=== PATIENT | male | born 1980 | race Hispanic/Latino ===

== ENCOUNTER → 2019-04-09 16:13 | Outpatient (CLI) | payer OTHER, SELFPAY ==
[2019-04-09 16:49] LABS: Hemoglobin A1C% w Est Avg Glu 13.5 % (4.0-6.0)
[2019-04-09 17:22] LABS: Creatinine Urine Random 61.3 mg/dL
[2019-04-09 17:26] LABS: Alanine Aminotransferase 53 IU/L (<50); Albumin 4.2 g/dL (3.5-5.0); Albumin Globulin Ratio 1.4 (1.0-2.8); Alkaline Phosphatase 120 U/L (38-126); Aspartate Aminotransferase 55 IU/L (17-59); BUN Creatinine Ratio 17.3 (6-22); Bilirubin Total 0.8 mg/dL (0.2-1.3); Blood Urea Nitrogen 19 mg/dL (9-20); Calcium 9.5 mg/dL (8.4-10.2); Carbon Dioxide 27 mmol/L (22-32); Chloride 97 mmol/L (98-107); Cholesterol 206 mg/dL (140-199); Estimated Glomerular Filt Rate > 60.0 mL/min (>60); Globulin 3.1 g/dL (1.7-4.1); Glucose 346 mg/dL (70-100); HDL Cholesterol 25 mg/dL (40-60); Potassium 3.9 mmol/L (3.4-5.1); Sodium 136 mmol/L (137-145); Total Protein 7.3 g/dL (6.3-8.2)
[2019-04-09 17:29] LABS: Microalbumi Creatinin Ratio Ur 9.7 ug/mg CR (<30); Microalbumin Urine Random < 0.6 mg/dL (0-1.6)
[2019-04-09 17:42] LABS: HEMOLYSIS 57 (0-50); Triglycerides 2395 mg/dL (35-150)
[2019-04-09 17:58] LABS: Vitamin D 25 Hydroxy (D3) 17.4 ng/mL (30.0-100.0)
== END ==
PROVIDERS: Family Provider Family Medicine; PCP Student in an Organized Health Care Education/Training Program; Visit Provider Student in an Organized Health Care Education/Training Program
DX: E11.9 Type 2 diabetes mellitus without complications (principal); E78.1 Pure hyperglyceridemia; E78.2 Mixed hyperlipidemia; I10 Essential (primary) hypertension; Z79.4 Long term (current) use of insulin
CPT/HCPCS: 36415; 80053; 80061; 82043; 82306; 82570; 83036

== ENCOUNTER → 2019-07-09 11:19 | Outpatient (CLI) | payer OTHER, SELFPAY ==
[2019-07-09 12:31] LABS: Hemoglobin A1C% w Est Avg Glu 8.1 % (4.0-6.0)
[2019-07-09 12:48] LABS: Cholesterol 104 mg/dL (140-199); HDL Cholesterol 34 mg/dL (40-60); LDL Cholesterol Calculated 46 mg/dL (<100); Triglycerides 121 mg/dL (35-150)
[2019-07-09 13:05] LABS: Vitamin D 25 Hydroxy (D3) 35.3 ng/mL (30.0-100.0)
[2019-07-11 14:27] LABS: Calcium 8.8 mg/dL (8.6-10.3); Parathyroid Hormone, Intact 20 pg/mL (14-64)
== END ==
PROVIDERS: Family Provider Family Medicine; PCP Student in an Organized Health Care Education/Training Program; Referring Provider Student in an Organized Health Care Education/Training Program; Visit Provider Student in an Organized Health Care Education/Training Program
DX: E11.9 Type 2 diabetes mellitus without complications (principal); E55.9 Vitamin D deficiency, unspecified; E78.1 Pure hyperglyceridemia; I10 Essential (primary) hypertension; Z79.4 Long term (current) use of insulin
CPT/HCPCS: 36415; 80061; 82306; 82310; 83036; 83970

== ENCOUNTER → 2020-03-02 11:51 | Outpatient (CLI) | payer OTHER, SELFPAY ==
[2020-03-02 12:55] LABS: Hemoglobin A1C% w Est Avg Glu 13.1 % (4.0-6.0)
[2020-03-02 13:44] LABS: Cholesterol 144 mg/dL (140-199); HDL Cholesterol 29 mg/dL (40-60)
[2020-03-02 13:53] LABS: Triglycerides 596 mg/dL (35-150)
[2020-03-02 15:22] LABS: Creatinine Urine Random 69.8 mg/dL
[2020-03-02 15:25] LABS: Microalbumin Urine Random 0.7 mg/dL (0-1.6)
== END ==
PROVIDERS: Family Provider Family Medicine; PCP Student in an Organized Health Care Education/Training Program; Referring Provider Student in an Organized Health Care Education/Training Program; Visit Provider Student in an Organized Health Care Education/Training Program
DX: E11.9 Type 2 diabetes mellitus without complications (principal); E78.1 Pure hyperglyceridemia; I10 Essential (primary) hypertension; Z79.4 Long term (current) use of insulin
CPT/HCPCS: 36415; 80061; 82043; 82570; 83036

== ENCOUNTER → 2020-06-19 15:41 | Outpatient (CLI) | payer OTHER, SELFPAY ==
[2020-06-19 16:48] LABS: Hemoglobin A1C% w Est Avg Glu 11.7 % (4.0-6.0)
== END ==
PROVIDERS: Family Provider Family Medicine; PCP Student in an Organized Health Care Education/Training Program; Referring Provider Student in an Organized Health Care Education/Training Program; Visit Provider Student in an Organized Health Care Education/Training Program
DX: E11.9 Type 2 diabetes mellitus without complications (principal); Z79.4 Long term (current) use of insulin
CPT/HCPCS: 36415; 83036

== ENCOUNTER → 2020-09-29 18:19 | Outpatient (CLI) | payer OTHER, SELFPAY ==
[2020-09-29 20:39] LABS: Influenza A - CEPHEID Flu A NEGATIVE (NEGATIVE); Influenza B - CEPHEID Flu B NEGATIVE (NEGATIVE)
== END ==
PROVIDERS: Family Provider Family Medicine; PCP Student in an Organized Health Care Education/Training Program; Visit Provider Physician Assistant
DX: R50.9 Fever, unspecified (principal)
CPT/HCPCS: 87502

== ENCOUNTER → 2020-09-29 18:32 | Outpatient (CLI) | payer OTHER, SELFPAY ==
--- NOTE | 2020-09-29 18:35 | DI.RAD.S_ITS ---
PROCEDURE: XR CHEST 2V INDICATIONS: wheezing TECHNIQUE: 2 views of the chest were acquired. COMPARISON: None. FINDINGS: Surgical changes and devices: None. Lungs and pleura: No pleural effusions or pneumothorax. Left mid lung/upper lobe focal consolidative opacity Mediastinum: Mediastinal contours are normal. Heart size is normal. Bones and chest wall: No suspicious bony abnormalities. Soft tissues appear unremarkable. IMPRESSION: Left upper lobe pneumonia. Dictated by: Daniel Long M.D. on 09/29/2020 at 18:47 Approved by: Daniel Long M.D. on 09/29/2020 at 18:48
== END ==
PROVIDERS: Family Provider Family Medicine; PCP Student in an Organized Health Care Education/Training Program; Referring Provider Physician Assistant; Visit Provider Physician Assistant
DX: J18.9 Pneumonia, unspecified organism (principal); R06.2 Wheezing; R50.9 Fever, unspecified
CPT/HCPCS: 71046; 87502

== ENCOUNTER → 2021-04-26 16:41 | Outpatient (CLI) | payer OTHER, SELFPAY ==
[2021-04-26 17:50] LABS: Hemoglobin A1C% w Est Avg Glu 10.9 % (4.0-6.0)
[2021-04-26 18:00] LABS: BUN Creatinine Ratio 17.8 (6-22); Blood Urea Nitrogen 18 mg/dL (9-20); Calcium 9.5 mg/dL (8.4-10.2); Carbon Dioxide 27 mmol/L (22-32); Chloride 95 mmol/L (98-107); Estimated Glomerular Filt Rate > 60.0 mL/min (>60); Glucose 420 mg/dL (70-100); HEMOLYSIS < 15 (0-50); Potassium 3.9 mmol/L (3.4-5.1); Sodium 134 mmol/L (137-145)
[2021-04-26 19:06] LABS: Creatinine Urine Random 46.8 mg/dL
[2021-04-26 19:15] LABS: Microalbumin Urine Random < 0.6 mg/dL (0-1.6)
== END ==
PROVIDERS: Family Provider Family Medicine; PCP Student in an Organized Health Care Education/Training Program; Referring Provider Student in an Organized Health Care Education/Training Program; Visit Provider Student in an Organized Health Care Education/Training Program
DX: E11.9 Type 2 diabetes mellitus without complications (principal); E78.1 Pure hyperglyceridemia; E78.2 Mixed hyperlipidemia; Z79.4 Long term (current) use of insulin
CPT/HCPCS: 36415; 80048; 82043; 82570; 83036

== ENCOUNTER → 2021-11-09 15:36 | Outpatient (CLI) | payer OTHER, SELFPAY ==
[2021-11-09 16:41] LABS: Alanine Aminotransferase 37 IU/L (<50); Albumin Globulin Ratio 1.5 (1.0-2.8); Alkaline Phosphatase 101 U/L (38-126); Aspartate Aminotransferase 34 IU/L (17-59); BUN Creatinine Ratio 19.6 (6-22); Bilirubin Total 0.6 mg/dL (0.2-1.3); Blood Urea Nitrogen 20 mg/dL (9-20); Calcium 9.9 mg/dL (8.4-10.2); Carbon Dioxide 28 mmol/L (22-32); Chloride 99 mmol/L (98-107); Estimated Glomerular Filt Rate > 60 mL/min (>60); Globulin 3.4 g/dL (1.7-4.1); Glucose 245 mg/dL (70-100); HEMOLYSIS < 15 (0-50); Potassium 3.4 mmol/L (3.4-5.1); Sodium 138 mmol/L (137-145); Total Protein 8.4 g/dL (6.3-8.2)
[2021-11-10 05:57] LABS: Fructosamine 435 umol/L (0-285)
== END ==
PROVIDERS: Family Provider Family Medicine; PCP Student in an Organized Health Care Education/Training Program; Referring Provider Student in an Organized Health Care Education/Training Program; Visit Provider Student in an Organized Health Care Education/Training Program
DX: E11.9 Type 2 diabetes mellitus without complications (principal); K76.0 Fatty (change of) liver, not elsewhere classified; Z79.4 Long term (current) use of insulin
CPT/HCPCS: 36415; 80053; 82985

== ENCOUNTER → 2022-06-14 11:27 | Outpatient (CLI) | payer OTHER, SELFPAY ==
[2022-06-14 12:18] LABS: Hemoglobin A1C% w Est Avg Glu 11.2 % (4.0-6.0)
[2022-06-14 12:34] LABS: Cholesterol 154 mg/dL (140-199); HDL Cholesterol 30 mg/dL (40-60); Triglycerides 480 mg/dL (35-150)
[2022-06-14 15:07] LABS: Creatinine Urine Random 107.9 mg/dL
[2022-06-14 15:13] LABS: Microalbumi Creatinin Ratio Ur 26.8 ug/mg CR (<30); Microalbumin Urine Random 2.9 mg/dL (0-1.6)
== END ==
PROVIDERS: Family Provider Family Medicine; PCP Student in an Organized Health Care Education/Training Program; Referring Provider Student in an Organized Health Care Education/Training Program; Visit Provider Student in an Organized Health Care Education/Training Program
DX: E11.9 Type 2 diabetes mellitus without complications (principal); Z79.4 Long term (current) use of insulin; E78.1 Pure hyperglyceridemia; E78.2 Mixed hyperlipidemia
CPT/HCPCS: 36415; 80061; 82043; 82570; 83036

== ENCOUNTER → 2022-09-27 11:12 | Outpatient (CLI) | payer OTHER, SELFPAY ==
[2022-09-28 07:36] LABS: x Labcorp Estim. Avg Glu (eAG) 280 mg/dL (.); x Labcorp Hemoglobin A1c 11.4 % (4.8-5.6)
== END ==
PROVIDERS: Family Provider Student in an Organized Health Care Education/Training Program; PCP Student in an Organized Health Care Education/Training Program; Referring Provider Student in an Organized Health Care Education/Training Program; Visit Provider Student in an Organized Health Care Education/Training Program
DX: E11.9 Type 2 diabetes mellitus without complications (principal); Z79.4 Long term (current) use of insulin
CPT/HCPCS: 36415; 83036

== ENCOUNTER → 2022-10-11 15:13 | Outpatient (CLI) | payer OTHER, SELFPAY ==
--- NOTE | 2022-10-11 17:24 | DIAB.INIT ---
Initial Diabetes Education Assessment Name: Terrence Bee Date: 10/11/22 Time: 330-5p Dx: Type II Diabetes Provider: Charlotte Terrence presents today for initial diabetes ed visit. Endorses PMH of DM for about 15 years. FH of DM with father and sister. Reports more difficulty managing Dm in the cooler months due to less activity with work. Recently changed from 70/30 insulin to basal bolus, however he never started bolus. As a result BG have been very high. We called his pharmacy today, they state his insurance will not cover Novolog. RD/CDCES messaged provider about switching rx to Humalog for better coverage. Terrence has 70/30 left over and plans to restart this regimen until his bolus rx can be figured out. States food is a problem, however diet recall indicates mostly low to moderate carb intake for most meals. Seems very conscious of carb portions. Has questions regarding insulin action and storage. Denies any symptoms with excessive high BG. Endorses shaky/cold symptoms with BG <50mg/dl. Hypoglycemia unawareness between 50-70mg/dl. Recently started Freestyle Marcie. Interested in smaller version, FSL3. Physical Activity: States he use to use a treadmill, but the main barrier is finding a time when his children are not sleeping. Family is reported main concern for increasing PA. needs help at home with kids after work. Work is active when working outside per report. Self-Monitoring Blood Glucose: Since switching off 70/30 insulin Terrence reports consistent elevations; however this is mostly r/t not fully understanding that he needed to add bolus to NPH BID. Not swiping 3x per day, which results in discrepancies in reports. Reports h/o severe lows in the night, <50 mg/dl and treating with yogurt. States he has noticed difference in cost of FSL lately. Called insurance without much help. Will provide FSL number for more info. 14 day Time in Range 79% very high >250mg/dl 17% high 181-250mg/dl 4% in range 0% low Diabetes Medications: NPH 30u BID Aspart 10u BID (not taking) Pertinent Labs: HgA1c: 11.4% 09/2022 11.2 06/2022 Past Medical History: (Last Reviewed 08/04/22 @ 11:59 by GAIL Finney) Allergic rhinitis Bronchitis Essential hypertension (07/10/15) Herpes simplex infection of penis (07/10/15) Hyperlipidemia associated with type 2 diabetes mellitus Type 2 diabetes mellitus without complication, with long-term current use of insulin (09/18/17) Intervention: This participant was very receptive. Provided appropriate educational handouts. Discussed the following topics: Completed intake assessment. Discussed barriers to care. Insulin action and differences between 70/30, NPH, and bolus Insulin storage FSL 2 vs 3 and provided number to discuss cost savings. Need for swiping 3x per day min, q 8 hours. Nutrition intake and brief recs Reviewed role of physical activity DKA and how elevated BG can increase risk Rule of 15 for lows and how to treat under 50mg/dl Created SMART goals for patient self-care and success. Goals: Swipe FSL 3x per day, q 8 hours Call FSL for cost info/savings Tomorrow call pharmacy, maybe PCP office for bolus rx Restart 70/30 until bolus rx sorted out Call SANYA/NELL if bolus rx not figured out by Monday Follow-up: CARI CAMEJO follow-up in 2 weeks. Meeting q 2 weeks. Encouraged Terrence to call/message me with questions or barriers to insulin. He agreed. Shelley Leonard RDN, NELL Certified Diabetes Care and Pneumatic System Conveyor Operator P: [phone] Thank you for this referral
== END ==
PROVIDERS: Absent Provider Student in an Organized Health Care Education/Training Program; Family Provider Student in an Organized Health Care Education/Training Program; PCP Student in an Organized Health Care Education/Training Program; Referring Provider Student in an Organized Health Care Education/Training Program; Visit Provider Student in an Organized Health Care Education/Training Program
DX: E11.9 Type 2 diabetes mellitus without complications (principal); Z79.4 Long term (current) use of insulin; Z71.3 Dietary counseling and surveillance
CPT/HCPCS: G0108

== ENCOUNTER → 2022-10-28 07:47 | Outpatient (CLI) | payer OTHER, SELFPAY ==
--- NOTE | 2022-10-28 08:39 | DIAB.FU ---
Addendum entered by Shelley Leonard 11/04/22 16:55: Phone check-in: Terrence taking 35u in the morning and 38u in the evening of NPH with 10u Aspart at meals. Still consistently elevated per CGM reports, in the 250-400mg/dl range. Has not yet made appt with Dr. Ashley. Per 1u/kg, could increase NPH to about 40u BID, then increase aspart at meals. Encouraged him to call PCP office monday for a visit and RD/NELL will f/u with him 1:[address] will also message provider for further guidance. Original Note: Follow-up Diabetes Education Assessment Name: Terrence Bee Date: 10/28/22 Time: [id number] Dx: Type II Diabetes Terrence presents for follow-up DM visit. Started Aspart 10u BID. Improved BG however still significantly elevated. States he often injects in the same few areas in abdomen. Potential for scar tissue impacting injection. Denies any changes to diet. States sometimes will skip breakfast and therefore Aspart dose. Called FSL and they are sending him some sensors. Currently states FSL is affordable at this time. May benefit from switching from NPH to a long acting insulin for better coverage. Questions regarding beans and rice portions/carbs. States sister and father also with Dm but only taking oral meds. Self-Monitoring Blood Glucose: Improved time in range, however still significantly elevated. Did have 2 low events in the last two weeks. Treated with juice and once with sweets (chocolate/marshmellows). Elevated 250-350mg/dl during much of the day. 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 Provided appropriate educational handouts. Discussed the following topics: Recent blood sugar results and trends Medication management Different types of insulin and action Injection site options and rotation Adjusting insulin according to activity (down) and higher intake (up) Risk of DM with family hx and with ethnic minorities. Brief nutrition discussion on portions/carbs, HS snack Created SMART goals for patient self-care and success. Goals: Swipe FSL 3x per day, q 8 hours- met Call FSL for cost info/savings- met Tomorrow call pharmacy, maybe PCP office for bolus rx- met Restart 70/30 until bolus rx sorted out- met Call RD/NELL if bolus rx not figured out by Monday- d/c Increase NPH to 35u- new If waking with >150mg/dl increase to 38-40u NPH- new May need to consider increasing Aspart to 12u- new Rotate injection sites- new Incorporate regular HS snack- new Make appt with Dr. Ashley- new Follow-up: CARI CAMEJO follow-up in 2 weeks. Will call in one week for check-in. Shelley Leonard, CARI, NELL Certified Diabetes Care and Environmental Issues Instructor P: [phone] Thank you for this referral
== END ==
PROVIDERS: Family Provider Student in an Organized Health Care Education/Training Program; PCP Student in an Organized Health Care Education/Training Program; Referring Provider Student in an Organized Health Care Education/Training Program; Visit Provider Student in an Organized Health Care Education/Training Program
DX: E11.9 Type 2 diabetes mellitus without complications (principal); Z79.4 Long term (current) use of insulin; Z71.3 Dietary counseling and surveillance
CPT/HCPCS: G0108

== ENCOUNTER → 2022-12-02 12:50 | Outpatient (CLI) | payer OTHER, SELFPAY ==
[2022-12-02 13:35] LABS: Add Manual Diff / Slide Review NO; Basophils Absolute Auto 0 /uL (0-100); Basophils Percent Auto 0.4 % (0-2); Eosinophils Absolute Auto 300 /uL (0-450); Eosinophils Percent Auto 2.9 % (2-4); Hematocrit 42.1 % (41-53); Hemoglobin 14.6 g/dL (13.5-17.5); Lymphocytes Absolute Auto 3600 /uL (1100-4500); Lymphocytes Percent Auto 40.2 % (25-40); Mean Corpuscular HGB Conc 34.6 % (30-36); Monocytes Absolute Auto 700 /uL (0-900); Monocytes Percent Auto 7.7 % (3-14); Neutrophils Absolute Auto 4400 /uL (1500-7000); Neutrophils Percent Auto 48.8 % (50-75); Platelet Count 323 X10^3/uL (150-400); Red Cell Distribution Width 13.6 % (11.6-14.8)
[2022-12-02 13:38] LABS: Appearance Urine UA CLEAR; Bilirubin Urine UA NEGATIVE (NEGATIVE); Color Urine UA YELLOW; Glucose Urine UA 1+ g/dL (Negative); Ketones Urine UA NEGATIVE (NEGATIVE); Leukocyte Esterase Urine UA NEGATIVE (NEGATIVE); Nitrite Urine UA NEGATIVE (Negative); Occult Blood Urine UA NEGATIVE (Negative); Protein Urine UA NEGATIVE (Negative); Urobilinogen Urine UA 0.2 E.U./dL (0.2)
[2022-12-02 13:46] LABS: Bacteria Urine None Seen; Culture Indicated Urine Cult Not Indicated; RBC Urine None Seen (0-5/HPF); Squamous Epithelial Cell Urine None Seen (0-5/HPF); WBC Urine None Seen (0-5/HPF)
[2022-12-02 13:54] LABS: Alanine Aminotransferase 60 IU/L (<50); Albumin 4.4 g/dL (3.5-5.0); Albumin Globulin Ratio 1.4 (1.0-2.8); Alkaline Phosphatase 69 U/L (38-126); Aspartate Aminotransferase 43 IU/L (17-59); BUN Creatinine Ratio 16.3 (6-22); Bilirubin Total 0.6 mg/dL (0.2-1.3); Blood Urea Nitrogen 14 mg/dL (9-20); Carbon Dioxide 28 mmol/L (22-32); Chloride 103 mmol/L (98-107); Estimated Glomerular Filt Rate > 60 mL/min (>60); Globulin 3.2 g/dL (1.7-4.1); Glucose 162 mg/dL (70-100); HEMOLYSIS < 15 (0-50); Potassium 3.5 mmol/L (3.4-5.1); Sodium 138 mmol/L (137-145); Total Protein 7.6 g/dL (6.3-8.2)
[2022-12-02 14:20] LABS: TSH w/ Reflex to FT4 1.87 uIU/mL (0.47-4.68)
[2022-12-02 14:43] LABS: Creatinine Urine Random 84.3 mg/dL
[2022-12-02 14:50] LABS: Microalbumi Creatinin Ratio Ur 34.4 ug/mg CR (<30); Microalbumin Urine Random 2.9 mg/dL (0-1.6)
[2022-12-03 04:09] LABS: Labcorp Hemoglobin (Hb) A1c 10.2 % (4.8-5.6)
== END ==
PROVIDERS: Family Provider Student in an Organized Health Care Education/Training Program; PCP Student in an Organized Health Care Education/Training Program; Referring Provider Pediatrics; Visit Provider Pediatrics
DX: E11.69 Type 2 diabetes mellitus with other specified complication (principal); E78.5 Hyperlipidemia, unspecified
CPT/HCPCS: 36415; 80053; 81001; 82043; 82570; 83036; 84443; 85025

== ENCOUNTER → 2023-09-12 09:11 | Outpatient (CLI) | payer OTHER, SELFPAY ==
[2023-09-12 11:10] LABS: BUN Creatinine Ratio 23.3 (6-22); Blood Urea Nitrogen 21 mg/dL (9-20); Calcium 9.8 mg/dL (8.4-10.2); Carbon Dioxide 30 mmol/L (22-32); Chloride 101 mmol/L (98-107); Cholesterol 167 mg/dL (140-199); Estimated Glomerular Filt Rate > 60 mL/min (>60); Glucose 224 mg/dL (70-100); HDL Cholesterol 31 mg/dL (40-60); HEMOLYSIS < 15 (0-50); Potassium 3.6 mmol/L (3.4-5.1); Sodium 138 mmol/L (137-145); Triglycerides 451 mg/dL (35-150)
[2023-09-12 11:23] LABS: Vitamin D 25 Hydroxy (D3) 29.1 ng/mL (30.0-100.0)
[2023-09-12 11:27] LABS: Microalbumin Urine Random 6.2 mg/dL (0-1.6)
[2023-09-12 11:30] LABS: Creatinine Urine Random 76.3 mg/dL; Microalbumi Creatinin Ratio Ur 81.2 ug/mg CR (<30)
[2023-09-12 19:27] LABS: Hemoglobin A1C% w Est Avg Glu 12.1 % (4.0-6.0)
== END ==
LOC: LAB 09:12
PROVIDERS: Family Provider Student in an Organized Health Care Education/Training Program; PCP Family Medicine; Referring Provider Family Medicine; Visit Provider Family Medicine
DX: E11.9 Type 2 diabetes mellitus without complications (principal); Z79.4 Long term (current) use of insulin; I10 Essential (primary) hypertension; E11.69 Type 2 diabetes mellitus with other specified complication; E78.5 Hyperlipidemia, unspecified; E55.9 Vitamin D deficiency, unspecified
CPT/HCPCS: 36415; 80048; 80061; 82043; 82306; 82570; 83036

== ENCOUNTER → 2024-02-06 10:08 | Outpatient (CLI) | payer OTHER, SELFPAY ==
[2024-02-06 13:51] LABS: Hemoglobin A1C% w Est Avg Glu 6.6 % (4.0-6.0)
== END ==
PROVIDERS: Family Provider Student in an Organized Health Care Education/Training Program; PCP Family Medicine; Referring Provider Family Medicine; Visit Provider Family Medicine
DX: E11.9 Type 2 diabetes mellitus without complications (principal)
CPT/HCPCS: 36415; 83036

== ENCOUNTER → 2024-07-31 11:32 | Outpatient (CLI) | payer OTHER, SELFPAY ==
[2024-07-31 12:20] LABS: COVID-19 CEPHEID 4-PLEX PCR Negative (Negative); Influenza A - CEPHEID Flu A NEGATIVE (NEGATIVE); Influenza B - CEPHEID Flu B NEGATIVE (NEGATIVE); Respiratory Syncytial Virus Negative (Negative)
== END ==
PROVIDERS: Family Provider Student in an Organized Health Care Education/Training Program; PCP Family Medicine; Visit Provider Physician Assistant
DX: R05.9 Cough, unspecified (principal)
CPT/HCPCS: 0241U

== ENCOUNTER → 2024-07-31 11:49 | Outpatient (CLI) | payer OTHER, SELFPAY ==
--- NOTE | 2024-07-31 11:50 | DI.RAD.S_ITS ---
PROCEDURE: XR CHEST 2V INDICATIONS: cough x 3 weeks TECHNIQUE: 2 views of the chest were acquired. COMPARISON: [facility], CR, XR CHEST 2V, 09/29/2020, 18:33. FINDINGS: Surgical changes and devices: None. Lungs and pleura: Lungs appear clear. No pleural effusions or pneumothorax. Mediastinum: Mediastinal contours are unchanged. Heart size is normal. Bones and chest wall: No suspicious bony abnormalities. Soft tissues appear unremarkable. IMPRESSION: No acute cardiopulmonary abnormality is seen. Dictated by: Paul Ramires M.D. on 07/31/2024 at 17:03 Approved by: Paul Ramires M.D. on 07/31/2024 at 17:04
== END ==
PROVIDERS: Family Provider Student in an Organized Health Care Education/Training Program; PCP Family Medicine; Referring Provider Physician Assistant; Visit Provider Physician Assistant
DX: J06.9 Acute upper respiratory infection, unspecified (principal); R05.9 Cough, unspecified
CPT/HCPCS: 0241U; 71046